=== PATIENT | male | born 1985 | race Caucasian/White ===

== ENCOUNTER 2017-03-19 18:28 | Emergency (ER) | payer BC ==
[~2017-03-19] VITALS: Ht 177.8 cm; Wt 152.0 kg
[2017-03-19 18:28] VITALS: BP_SYST 144
[2017-03-19] MEDS ORDERED: BACITRACIN 1 GM OINT TP ONE (18:45)
[2017-03-19] MEDS ORDERED: LIDOCAINE/EPI 1% 1:100000 20 ML VIAL IJ ONE (18:45)
[2017-03-19] MEDS ORDERED: DIPH-TET-PERTUS Vaccine 0.5 ML VIAL (ADACEL) IM ONE (18:45)
[2017-03-19] MEDS ORDERED: SILVER NITRATE APPLICATOR 1 STICK STICK..EA. TP ONE (19:25)
[2017-03-19 20:22] VITALS: BP_SYST 138
== END 2017-03-19 20:22 | disposition home or self-care (01) ==
LOC: SED 18:28
DX: I83.891 Varicose veins of right lower extremity with other complications (principal)
CPT/HCPCS: 90715; 99283